=== PATIENT | male | born 1975 | race Hispanic/Latino ===

== ENCOUNTER 2020-03-09 10:27 | Outpatient (CLI) | payer BC | END 2020-03-09 21:27 | disposition home or self-care (01) | LOC: RESP 10:27 | DX: Z00.00 Encounter for general adult medical examination without abnormal findings (principal); I10 Essential (primary) hypertension; R53.83 Other fatigue; E66.9 Obesity, unspecified; R00.2 Palpitations; R79.89 Other specified abnormal findings of blood chemistry; Z51.81 Encounter for therapeutic drug level monitoring | CPT/HCPCS: 36415; 82550; 82553; 84484; 93005 ==

== ENCOUNTER 2023-04-03 09:53 | Outpatient (CLI) | payer OTHER, BC | END 2023-04-03 19:05 | disposition home or self-care (01) | LOC: RESP 09:53 | PROVIDERS: ATTEND Nurse Practitioner Family | DX: Z01.818 Encounter for other preprocedural examination (principal) | CPT/HCPCS: 93005 ==